=== PATIENT | female | born 1935 | race Caucasian/White ===

== ENCOUNTER 2019-02-24 14:41 | Emergency (ER) | payer OTHER ==
--- NOTE | 2019-02-24 16:52 | RAD REPORT ---
EXAM DESCRIPTION: RAD - Foot Right 3 View - 02/24/2019 4:29 pm COMPARISON: None. FINDINGS: No fracture, dislocation or periosteal reaction. No acute or destructive bone process. No air or foreign body in the soft tissues. IMPRESSION: Negative right foot examination.
--- NOTE | 2019-02-24 17:13 | ER ---
Nurse's Notes [facility] Name: Macy Faria Age: 83 yrs Sex: Female : 1935 Arrival Date: 02/24/2019 Time: 14:48 Bed 10 Private MD: Diagnosis: Contusion of right foot Presentation: 02/24 14:51 Presenting complaint: Patient states: I was in the shower and a shampoo bottle fell on la1 my right foot about 5 days ago, I am scared to get a blood clot. Transition of care: patient was not received from another setting of care. Onset of symptoms was February 24, 2019. Risk Assessment: Do you want to hurt yourself or someone else? Patient reports no desire to harm self or others. Initial Sepsis Screen: Does the patient meet any 2 criteria? No. Patient's initial sepsis screen is negative. Does the patient have a suspected source of infection? No. Patient's initial sepsis screen is negative. Care prior to arrival: None. 14:51 Method Of Arrival: Wheelchair la1 14:51 Acuity: MAGDALENE 4 la1 Triage Assessment: 17:00 General: Appears in no apparent distress. Behavior is calm, cooperative. Injury iw Description: Bruise. Historical: - Allergies: 14:51 Erythromycin; la1 14:51 Latex, Natural Rubber; la1 14:51 Cortisone; la1 - PMHx: 14:51 COPD; lung ca; cardiomegaly; CHF; la1 - Immunization history:: Adult Immunizations up to date. - Social history:: Smoking status: Patient/guardian denies using tobacco, the patient reports quitting approximately 10 years ago. - Ebola Screening: : No symptoms or risks identified at this time. - Family history:: not pertinent. - Hospitalizations: : No recent hospitalization is reported. Screenin:00 Abuse screen: Denies threats or abuse. Denies injuries from another. Nutritional iw screening: No deficits noted. Tuberculosis screening: No symptoms or risk factors identified. Fall Risk None identified. Assessment: 16:30 General: Appears in no apparent distress. comfortable, Behavior is calm, cooperative. iw Pain: Complains of pain in dorsum of right foot. Neuro: Level of Consciousness is awake, alert, obeys commands, Oriented to person, place, time, situation. Cardiovascular: Patient's skin is warm and dry. Respiratory: Respiratory effort is even, unlabored, Respiratory pattern is regular. Derm: Bruising that is on dorsum of right foot. Musculoskeletal: Range of motion: intact in all extremities. Vital Signs: 14:49 BP 105 / 72; Pulse 100; Resp 16; Temp 98.2; Pulse Ox 95% on 3 lpm NC; Weight 61.23 kg; la1 ED Course: 14:48 Patient arrived in ED. la1 14:49 Arm band placed on right wrist. la1 14:51 Triage completed. la1 16:00 Luis Keith MD is Attending Physician. rn 16:07 David Caldwell, RN is Primary Nurse. la1 16:29 Foot Right 3 View XRAY In Process Unspecified. EDMS 16:30 Patient has correct armband on for positive identification. iw 17:30 No provider procedures requiring assistance completed. Patient did not have IV access iw during this emergency room visit. Administered Medications: No medications were administered Outcome: 17:12 Discharge ordered by . rn 17:31 Discharged to home ambulatory. iw 17:31 Condition: good 17:31 Discharge instructions given to patient, Instructed on discharge instructions, follow up and referral plans. Demonstrated understanding of instructions, follow-up care. 17:32 Patient left the ED. cp Signatures: Dispatcher [employer] Cuca Tracy RN RN iw Nieto, Roman, MD MD rn Attema, Lee, RN RN la1 Page, Corey, PA PA cp
--- NOTE | 2019-02-24 17:13 | EDPHYS ---
Physician Documentation [facility] Name: Macy Faria Age: 83 yrs Sex: Female : 1935 Arrival Date: 02/24/2019 Time: 14:48 Bed 10 Private MD: ED Physician Luis Keith HPI: 02/24 16:14 This 83 yrs old Female presents to ER via Wheelchair with complaints of Foot rn Injury. 16:14 The patient presents with an injury, pain, swelling. The complaints affect the right rn foot. Onset: The symptoms/episode began/occurred 5 day(s) ago. Modifying factors: The symptoms are alleviated by nothing, the symptoms are aggravated by weight bearing, movement. Associated signs and symptoms: Pertinent positives: swelling, Pertinent negatives: fever, weakness. Severity of symptoms: At their worst the symptoms were moderate, in the emergency department the symptoms have improved. The patient has not experienced similar symptoms in the past. Reports 5 days ago dropped shampoo bottle on foot while in shower, reports pain and swelling to top of right foot, is limping on it, decreased swelling and bruising but still hurting, on eliquis. . Historical: - Allergies: 14:51 Erythromycin; la1 14:51 Latex, Natural Rubber; la1 14:51 Cortisone; la1 - PMHx: 14:51 COPD; lung ca; cardiomegaly; CHF; la1 - Immunization history:: Adult Immunizations up to date. - Social history:: Smoking status: Patient/guardian denies using tobacco, the patient reports quitting approximately 10 years ago. - Ebola Screening: : No symptoms or risks identified at this time. - Family history:: not pertinent. - Hospitalizations: : No recent hospitalization is reported. ROS: 16:14 Constitutional: Negative for fever, chills, and weight loss, MS/Extremity: + right rn foot, swelling and bruising Neuro: Negative for weakness, numbness, tingling Exam: 16:14 Constitutional: This is a well developed, well nourished patient who is awake, alert, rn and in no acute distress. MS/ Extremity: Pulses equal, no cyanosis. Neurovascular intact. Full, normal range of motion. + swelling and tenderness right midfoot with ecchymosis that extends to toes. No gross deformity other than swelling. NO ankle to tib/fib tenderness. Soft compartments. Vital Signs: 14:49 BP 105 / 72; Pulse 100; Resp 16; Temp 98.2; Pulse Ox 95% on 3 lpm NC; Weight 61.23 kg; la1 MDM: 16:00 Patient medically screened. rn 17:11 Differential diagnosis: fracture, sprain. Data reviewed: vital signs, nurses notes, rn radiologic studies, plain films, and as a result, I will discharge patient. Test interpretation: by ED physician or midlevel provider: plain radiologic studies, Xray right foot negative for fracture. Counseling: I had a detailed discussion with the patient and/or guardian regarding: the historical points, exam findings, and any diagnostic results supporting the discharge/admit diagnosis, radiology results, the need for outpatient follow up, to return to the emergency department if symptoms worsen or persist or if there are any questions or concerns that arise at home. Special discussion: I discussed with the patient/guardian in detail that at this point there is no indication for admission to the hospital. It is understood, however, that if the symptoms persist or worsen the patient needs to return immediately for re-evaluation. 07 14:52 Order name: Foot Right 3 View XRAY; Complete Time: 17:11 la1 Administered Medications: No medications were administered Disposition: 02/24/19 17:12 Discharged to Home. Impression: Contusion of right foot. - Condition is Stable. - Discharge Instructions: Foot Contusion. - Medication Reconciliation Form, Thank You Letter, Antibiotic Education, Prescription Opioid Use form. - Follow up: Private Physician; When: As needed; Reason: Recheck today's complaints, Re-evaluation by your physician. - Problem is an ongoing problem. - Symptoms have improved. Signatures: Dispatcher [employer] EDMS Luis Keith MD MD rn Attema, Lee, RN RN la1 Ashok Villanueva PA PA cp Corrections: (The following items were deleted from the chart) 16:18 16:14 Constitutional: This is a well developed, well nourished patient who is awake, rn alert, and in no acute distress. MS/ Extremity: Pulses equal, no cyanosis. Neurovascular intact. Full, normal range of motion. + swelling and tenderness right midfoot with ecchymosis that extends to toes. No gross deformity other than swelling. NO ankle to tib/fib tenderness. rn 17:32 17:12 02/24/2019 17:12 Discharged to Home. Impression: Contusion of right foot. cp Condition is Stable. Forms are Medication Reconciliation Form, Thank You Letter, Antibiotic Education, Prescription Opioid Use. Follow up: Private Physician; When: As needed; Reason: Recheck today's complaints, Re-evaluation by your physician. Problem is an ongoing problem. Symptoms have improved. rn
== END 2019-02-24 17:32 | disposition home or self-care (01) ==
LOC: ER 14:41
DX: S90.31XA Contusion of right foot, initial encounter (principal); W20.8XXA Other cause of strike by thrown, projected or falling object, initial encounter; Y93.E1 Activity, personal bathing and showering; Y92.002 Bathroom of unspecified non-institutional (private) residence as the place of occurrence of the external cause; Z88.3 Allergy status to other anti-infective agents; Z91.040 Latex allergy status
CPT/HCPCS: 99283